=== PATIENT | male | born 1990 | race African-American/Black ===

== ENCOUNTER 2020-12-01 01:19 | Emergency (ER) | payer OTHER, SELFPAY ==
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
[2020-12-01 01:30] VITALS: BP 138/93; PULSE 86; RESP 20; TEMP 36.6; O2SAT 99
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
[2020-12-01 03:46] VITALS: BP 142/89; PULSE 79; RESP 16; O2SAT 100
[2020-12-01 04:02] LABS: Basophils Percent Auto 0.4 % (0.2-1.2); Eosinophils Absolute Auto 0.2 K/mm3 (0-0.3); Eosinophils Percent Auto 2.5 % (0-4.4); Hematocrit 45.4 % (42.0-52.0); Immature Granulocyte Absolute 0.04 K/mm3 (0.00-0.031); Immature Granulocyte Percent A 0.5 % (0-0.5); Lymphocytes Absolute Auto 2.96 K/mm3 (0.9-3.2); Lymphocytes Percent Auto 34.9 % (18.3-44.2); Mean Corpuscular Hemoglobin 30.1 pg (26-34); Mean Platelet Volume 10.8 fl (7.4-10.4); Monocytes Absolute Auto 0.6 K/mm3 (0.1-0.6); Neutrophils Absolute Auto 4.7 K/mm3 (1.3-6.7); Neutrophils Percent Auto 54.7 % (45.5-73.1); Platelet Count Result 203 k/mm3 (150-375); Red Blood Count 4.99 M/mm3 (4.6-6.20); Red Cell Distribution Width 12.6 % (11.5-14.5); White Blood Count 8.5 K/mm3 (4.5-10.0)
[2020-12-01 04:12] LABS: Alanine Aminotransferase 32 U/L (4-50); Albumin Level 4.1 g/dL (3.5-5.1); Alkaline Phosphatase 54 U/L (38-126); Anion Gap 8 mmol/L (8-16); Aspartate Amino Transferase 27 U/L (17-59); Bilirubin,Total 0.3 mg/dL (0.2-1.3); Blood Urea Nitrogen 14 mg/dL (9-20); Calcium 9.2 mg/dL (8.4-10.2); Carbon Dioxide 26 mmol/L (22-30); Chloride 103 mmol/L (98-107); Estimated CRCL calculation 131 ml/min; Estimated Glomerular Filt Rate > 60; Glucose 121 mg/dL (75-110); Potassium 4.1 mmol/L (3.4-5.0); Sodium 137 mmol/L (137-145)
[2020-12-01] MEDS: ONDANSETRON INJ 4 MG/2 ML VIAL IV PUSH (04:22)
[2020-12-01 04:27] LABS: INR 0.9; Prothrombin Time 12.5 Seconds (11.1-14.7)
[2020-12-01 04:29] LABS: Partial Thromboplastin Time 28.4 SECONDS (22.3-36.8)
[2020-12-01] MEDS: LACTATED RINGERS 1,000 ML 999 ML IV CONT (04:34)
[2020-12-01 05:17] VITALS: BP 142/90; PULSE 86; RESP 16; O2SAT 97
--- NOTE | 2020-12-01 05:25 | PC.NURSE ---
Pt ambulated to bathroom with steady gait, in no obvious distress.
--- NOTE | 2020-12-01 06:00 | PC.NURSE ---
This RN entered room to discharge pt and found pt had eloped.
--- NOTE | 2020-12-01 06:25 | PC.NURSE ---
Pt ambulated to bathroom with steady gait in no obvious distress.
== END 2020-12-01 06:00 | disposition home or self-care (01) ==
PROVIDERS: Emergency Provider General Practice
DX: S09.90XA Unspecified injury of head, initial encounter (principal); V89.2XXA Person injured in unspecified motor-vehicle accident, traffic, initial encounter
CPT/HCPCS: 36415; 70450; 71045; 72125; 80053; 85025; 85610; 85730; 96361; 96374; 96375; 99284; J0131; J2405; J7120